=== PATIENT | male | born 1960 ===

== ENCOUNTER → 2020-06-08 | Outpatient (REF) | payer OTHER | LOC: M LABCFH 10:11 | PROVIDERS: ATTEND Urology | DX: R31.9 Hematuria, unspecified (principal) ==

== ENCOUNTER → 2021-04-13 | Outpatient (REF) | payer OTHER | LOC: M LABCFH 09:25 | PROVIDERS: ATTEND Urology | DX: R31.9 Hematuria, unspecified (principal) ==